=== PATIENT | female | born 1985 | race Caucasian/White ===

== ENCOUNTER 2017-04-03 10:04 | Emergency (ER) | payer MEDICAID ==
[2017-04-03 11:47] LABS: BASOPHIL % 0.5 % (0-2); PLATELET COUNT 265 x10^3mcL (130-400)
[2017-04-03 11:54] LABS: CARBON DIOXIDE 32.1 mmol/L (21-32); CHLORIDE SERUM 102 mmol/L (98-107); CREATININE SERUM 0.6 mg/dL (0.6-1.0); GFR1 > 60 mL/min; GLUCOSE SERUM 87 mg/dL (74-106); POTASSIUM SERUM 4.2 mmol/L (3.5-5.1); SODIUM SERUM 137 mmol/L (136-145)
[2017-04-03 12:00] LABS: ALBUMIN 4.1 g/dL (3.4-5.0); ALKALINE PHOSPHATASE 66 U/L (46-116); ALT/SGPT 26 U/L (14-59); AMYLASE 69 U/L (25-115); AST/SGOT 14 U/L (15-37); BILIRUBIN TOTAL 0.4 mg/dL (0.20-1.00); LIPASE 169 IU/L (73-393); TOTAL PROTEIN, SERUM 7.5 g/dL (6.4-8.2)
[2017-04-03 12:44] VITALS: BP 115/76
== END 2017-04-03 12:44 | disposition home or self-care (01) ==
LOC: ED 10:04
PROVIDERS: Emergency Medicine
DX: R10.31 Right lower quadrant pain (principal)
CPT/HCPCS: 36415; J1885